=== PATIENT | male | born 1955 | race Caucasian/White ===

== ENCOUNTER → 2016-04-24 | Outpatient (CLI) | payer BC | END | disposition home or self-care (01) | LOC: LAB.O 14:25 | PROVIDERS: ATTEND Urology | DX: R97.20 Elevated prostate specific antigen [PSA] (principal) ==

== ENCOUNTER → 2016-07-04 | Outpatient (CLI) | payer BC | END | disposition home or self-care (01) | LOC: GMAJ 10:16 | PROVIDERS: ATTEND Family Medicine | DX: C61 Malignant neoplasm of prostate (principal) ==

== ENCOUNTER 2016-07-29 05:36 | Day surgery (SDC) | payer BC ==
[2016-07-29] MEDS ORDERED: LACTATED RINGERS 1,000 ML ONE (06:13)
[2016-07-29] MEDS ORDERED: fentaNYL CITRATE INJ 50 MCG/ML AMP ONE (07:21)
[2016-07-29] MEDS ORDERED: MIDAZOLAM INJ 5 MG/5 ML VIAL ONE (07:21)
[2016-07-29 08:56] VITALS: BP 146/65; TEMP 97.5; O2SAT 100
--- NOTE | 2016-07-29 09:10 | OP ---
DATE OF PROCEDURE: 07/29/16 PREOPERATIVE DIAGNOSIS: 1. Colon cancer screen. POSTOPERATIVE DIAGNOSIS: 1. External hemorrhoids. 2. Mild diverticular disease of the sigmoid colon. PROCEDURE: 1. Colonoscopy. SURGEON: Isaiah Crow MD. ANESTHESIA: MAC by Escobar Clay CRNA. ESTIMATED BLOOD LOSS: None. COMPLICATIONS: None apparent. TECHNIQUE: After informed consent was obtained from the patient, the patient was taken to the Endoscopy Suite and put in the left lateral decubitus position. After adequate IV sedation was obtained, a digital rectal exam was performed which revealed large external hemorrhoidal tags without evidence of active bleeding or thrombosis, and decrease sphincter tone. The prostate was not palpable. The colonoscope was then passed with good visualization all the way through the colon. The bowel prep was excellent. The cecum was identified by the presence of ileocecal valve and appendiceal orifice. The scope was then withdrawn slowly over the next 10 minutes and a good look at the entire colonic mucosa was obtained. A very few small scattered diverticula were found in the sigmoid region. In the rectum, the patient had evidence of some bowel prep trauma with little focal petechial areas of inflammation, but there was no ulceration, no masses, and no sign of a proctitis or colitis type picture. The scope was removed. The patient tolerated the procedure well. The patient was transported to the outpatient area in good condition. He will remain on a high fiber diet and followup with me on an as needed basis. His next colon screen will be in ten years. #[id number] [facility]
[2016-07-29] MEDS ORDERED: PROPOFOL 200 MG/20 ML VIAL IV ONE (12:00)
[2016-07-29] MEDS ORDERED: LIDOCAINE 1% 10 ML VIAL INJ ONE (12:00)
== END 2016-07-29 08:50 | disposition home or self-care (01) ==
LOC: AMB 05:36
PROVIDERS: ATTEND Family Medicine
DX: Z12.11 Encounter for screening for malignant neoplasm of colon (principal); K64.4 Residual hemorrhoidal skin tags; K57.30 Diverticulosis of large intestine without perforation or abscess without bleeding; E11.9 Type 2 diabetes mellitus without complications; K21.9 Gastro-esophageal reflux disease without esophagitis; Z88.8 Allergy status to other drugs, medicaments and biological substances; Z79.899 Other long term (current) drug therapy
CPT/HCPCS: 00810; 36416; 45378; 82948; J2250; J3010; J3490; J7120

== ENCOUNTER → 2017-08-25 | Outpatient (CLI) | payer BC | LOC: GMAJ 10:44 | PROVIDERS: ATTEND Family Medicine | DX: C61 Malignant neoplasm of prostate (principal) ==

== ENCOUNTER → 2018-02-05 | Outpatient (CLI) | payer BC ==
--- NOTE | 2018-02-05 16:32 | US ---
EXAM DESCRIPTION: Extremity,Lower RT Arteries: Ultrasound. CLINICAL HISTORY: CELLULITIS OF THE RIGHT LOWER LIMB COMPARISON: None. TECHNIQUE: Doppler evaluation of the bilateral lower extremity arterial flow waveforms and velocities. FINDINGS: Arterial waveforms in the right lower extremity are triphasic from the right common femoral artery through the right peroneal artery. Biphasic in the right dorsalis pedis artery.. Comments: Velocities are unremarkable except for mild elevation in the right posterior tibial artery. IMPRESSION: Duplex evaluation of the right lower extremity arterial systems showing NO evidence of significant atherosclerotic occlusive disease. Electronically signed by: Casper Hazel MD 02/05/2018 4:30 PM [facility]
--- NOTE | 2018-02-05 16:37 | US ---
EXAM DESCRIPTION: Venous,Lower Extremity RT: ULTRASOUND. CLINICAL HISTORY: I73.9 COMPARISON: Duplex arterial evaluation of the right lower extremity arterial system. TECHNIQUE: Penny-scale and doppler sonographic evaluation of the deep venous system of the right lower extremity. FINDINGS: Doppler evaluation shows normal color flow and normal phasicity and augmentation of the right common femoral vein, femoral vein, popliteal vein, greater/lesser saphenous vein, peroneal, and posterior tibial vein. The right lower extremity deep veins were completely compressible; normal occlusion with transducer pressure. Penny-scale survey showed no echogenic thrombus within these veins. IMPRESSION: 1. Duplex ultrasound evaluation of the right lower extremity deep venous system showing no evidence of thrombosis. Electronically signed by: Casper Hazel MD 02/05/2018 4:35 PM [facility]
== END ==
LOC: US 09:27
PROVIDERS: ATTEND Family Medicine
DX: I73.9 Peripheral vascular disease, unspecified (principal); L03.115 Cellulitis of right lower limb

== ENCOUNTER → 2019-09-23 | Outpatient (CLI) | payer BC | LOC: GMAJ 10:29 | PROVIDERS: ATTEND Family Medicine | DX: Z00.00 Encounter for general adult medical examination without abnormal findings (principal) ==